=== PATIENT | female | born 2000 | race Caucasian/White ===

== ENCOUNTER 2020-10-29 07:30 | Emergency (ER) | payer MEDICAID ==
[~2020-10-29] VITALS: Ht 160 cm; Wt 50.0 kg
[2020-10-29] MEDS ORDERED: ACETAMINOPHEN 325MG TABLET PO ONE (08:15)
[2020-10-29 11:05] VITALS: BP 110/75
== END 2020-10-29 12:45 | disposition home or self-care (01) ==
LOC: ER 07:30
DX: S02.2XXA Fracture of nasal bones, initial encounter for closed fracture (principal); S09.8XXA Other specified injuries of head, initial encounter; E10.9 Type 1 diabetes mellitus without complications; Z79.4 Long term (current) use of insulin; Y08.89XA Assault by other specified means, initial encounter; Y07.03 Male partner, perpetrator of maltreatment and neglect; Y93.89 Activity, other specified; Y92.89 Other specified places as the place of occurrence of the external cause
CPT/HCPCS: 70486; 70490; 81025; 82962; 99285

== ENCOUNTER 2021-05-30 12:37 | Emergency (ER) | payer MEDICAID, OTHER ==
[~2021-05-30] VITALS: Ht 160 cm; Wt 55.0 kg
[2021-05-30 13:59] LABS: BASOPHILS % 0.3 % (0.0-2.0); EOSINOPHILS % 0.4 % (0.0-5.0); HEMATOCRIT. 42.5 % (36.0-48.0); HEMOGLOBIN. 14.5 g/dL (12.0-16.0); LYMPHOCYTES % 9.5 % (20.0-50.0); MEAN CORPUSCULAR HEMOGLOBIN 33.3 pg (28.0-32.0); MEAN CORPUSCULAR VOLUME 97.6 fL (81.0-99.0); MEAN PLATELET VOLUME 8.9 fl (7.4-10.4); MONOCYTES % 3.5 % (2.0-8.0); NEUTROPHILS % 86.3 % (40.0-76.0); PLATELET 333 x1000/uL (130-400); RED BLOOD CELL COUNT 4.35 mill/uL (4.2-5.4); RED CELL DISTRIBUTION WIDTH 12.8 % (11.6-14.6)
[2021-05-30 14:07] LABS: CHLORIDE 100 mEq/L (98-107)
[2021-05-30 14:53] VITALS: BP 115/89
[2021-05-30 15:22] LABS: CLARITY URINE CLOUDY (CLEAR); COLOR URINE YELLOW (YELLOW); KETONES URINE NEGATIVE (NEGATIVE); LEUKOCYTE ESTERASE URINE 1+ (NEGATIVE); NITRITE URINE NEGATIVE (NEGATIVE); OCCULT BLOOD URINE NEGATIVE (NEGATIVE); PROTEIN URINE NEGATIVE (NEGATIVE); SPECIFIC GRAVITY URINE 1.042 (1.005-1.030); UROBILINOGEN URINE 0.2 E.U./dL (0.2-1.0)
[2021-05-30] MEDS ORDERED: METR500T MT (15:41)
[2021-06-03 04:09] LABS: NEISSERIA GONORRHOEAE NAA Positive (Negative)
== END 2021-05-30 15:53 | disposition home or self-care (01) ==
LOC: ER 12:37
DX: N76.0 Acute vaginitis (principal)
CPT/HCPCS: 36415; 80053; 81003; 81025; 85025; 87210; 87491; 87591; 99283